=== PATIENT | female | born 2000 | race Two or more races ===

== ENCOUNTER → 2024-04-29 | Outpatient (CLI) | payer MEDICAID, SELFPAY ==
--- NOTE | 2024-04-29 | XR_ITS ---
Examination: CT abdomen with intravenous contrast CT pelvis with intravenous contrast 2-D coronal reconstructions 2-D sagittal reconstructions Date and time of exam: April 29, 2024 1219 hours INDICATIONS: Onset left lower abdominal pain beginning May 2022 CTDI: vol (mGy) 5.37 DLP: (mGycm) 266 Technique: Multiple axial sections of the abdomen and pelvis have been obtained. 64 slice high-resolution scanner used. 3 mm axial sections have been obtained, post intravenous injection 60 cc [id number] 2-D sagittal, coronal reconstructions obtained. Low dose protocols were performed. One or more of the following dose reduction techniques were used; automated exposure control, adjustment of the mA and/or KV according to patient size, use of iterative reconstruction technique. Findings: No focal liver or splenic lesions Absent gallbladder No pancreatic or adrenal mass No renal or ureteral calculi, no hydronephrosis 8mm fat-containing umbilical hernia Absent appendix No bowel obstruction Colonic diverticulosis Anteverted uterus Bilateral subcentimeter ovarian follicular cysts Urinary bladder intact Osseous structures intact IMPRESSION: Absent appendix No bowel obstruction Bilateral subcentimeter ovarian follicular cysts
[2024-04-29 11:23] LABS: HCG Qualitative,Urine Negative
== END | disposition home or self-care (01) ==
PROVIDERS: PCP Internal Medicine; Referring Provider Internal Medicine; Visit Provider Internal Medicine
DX: N83.02 Follicular cyst of left ovary (principal); N83.01 Follicular cyst of right ovary
CPT/HCPCS: 74177; 81025; A4649; Q9967

== ENCOUNTER → 2025-02-27 | Outpatient (CLI) | payer MEDICAID, SELFPAY ==
--- NOTE | 2025-02-27 13:30 | XR_ITS ---
Examination: Transvaginal ultrasound of the pelvis, complete Technique: Transvaginal sonographic images pelvis performed using rowe scale imaging Exam date and time: February 27, 2025, 1347 hours INDICATIONS: Severe vaginal discomfort during menstrual cycles 2 years FINDINGS: Uterus 7.5 cm no uterine mass or intrauterine gestation Endometrial stripe 11 mm Right ovary 2.7 cm arterial flow small follicles Left ovary 3.2 cm arterial flow small follicles including 15 mm follicular cyst IMPRESSION: No uterine mass or intrauterine gestation.
== END | disposition home or self-care (01) ==
PROVIDERS: PCP Nurse Practitioner Family; Referring Provider Nurse Practitioner Family; Visit Provider Nurse Practitioner Family
DX: R10.2 Pelvic and perineal pain (principal); K62.89 Other specified diseases of anus and rectum
CPT/HCPCS: 76830